=== PATIENT | female | born 1980 | race Caucasian/White ===

== ENCOUNTER 2020-04-04 12:19 | Emergency (ER) | payer OTHER, SELFPAY ==
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
[2020-04-04 14:13] VITALS: BP 176/108; PULSE 96; RESP 18; TEMP 37; O2SAT 99; BMI 24.4
== END 2020-04-04 16:48 | disposition home or self-care (01) ==
PROVIDERS: Emergency Provider Emergency Medicine; PCP Internal Medicine
DX: S06.0X0A Concussion without loss of consciousness, initial encounter (principal); V47.5XXA Car driver injured in collision with fixed or stationary object in traffic accident, initial encounter; Y93.89 Activity, other specified; Y92.411 Interstate highway as the place of occurrence of the external cause; Y99.9 Unspecified external cause status
CPT/HCPCS: 70450; 72125; 99283; 99284